=== PATIENT | male | born 1935 | race Caucasian/White ===

== ENCOUNTER 2018-02-15 11:33 | Inpatient (IN) | payer OTHER ==
[~2018-02-15] VITALS: Ht 177.8 cm; Wt 109.0 kg
[2018-02-15 11:55] VITALS: Ht 177.8 cm; Wt 109.0 kg
[2018-02-15 12:28] LABS: BASOPHIL % 0.2 % (0-2); PLATELET COUNT 244 x10^3mcL (130-400); RED CELL DISTRIBUTION WIDTH 13.2 % (11.5-14.5)
[2018-02-15 12:31] LABS: ALBUMIN 3.6 g/dL (3.4-5.0); ALKALINE PHOSPHATASE 57 U/L (46-116); ALT/SGPT 21 U/L (16-63); AST/SGOT 16 U/L (15-37); BILIRUBIN TOTAL 0.6 mg/dL (0.20-1.00); CALCIUM 9.3 mg/dL (8.5-10.1); CARBON DIOXIDE 32.6 mmol/L (21-32); CHLORIDE SERUM 99 mmol/L (98-107); CREATININE SERUM 1.5 mg/dL (0.7-1.3); GLUCOSE SERUM 162 mg/dL (74-106); POTASSIUM SERUM 3.6 mmol/L (3.5-5.1); SODIUM SERUM 137 mmol/L (136-145)
[2018-02-15] MEDS ORDERED: OCU OU (12:40)
[2018-02-15] MEDS ORDERED: PRED FORTE1 ML OS (12:40)
[2018-02-15] MEDS ORDERED: ASSORTED FRUIT G4 GM PO (12:41)
[2018-02-15] MEDS ORDERED: NASINH (12:41)
[2018-02-15] MEDS ORDERED: AMLODIPINE BESY10 M2 PO (12:42)
[2018-02-15] MEDS ORDERED: FINASTERIDE5 M1 PO (12:42)
[2018-02-15] MEDS ORDERED: FLO4 PO (12:42)
[2018-02-15] MEDS ORDERED: [UNRECOGNIZED DRUG - OTHER] PR (12:42)
[2018-02-15] MEDS ORDERED: GAS RELIEF80 MG PO (12:43)
[2018-02-15] MEDS ORDERED: GLUCOTROL5 MG PO (12:43)
[2018-02-15] MEDS ORDERED: LACTULOSE10 GM/152 PO (12:43)
[2018-02-15] MEDS ORDERED: ATENOLOL100 MG PO (12:44)
[2018-02-15] MEDS ORDERED: METFORMIN HCL850 MG PO (12:44)
[2018-02-15] MEDS ORDERED: ASPIRIN ADULT L81 M5 PO (12:44)
[2018-02-15] MEDS ORDERED: HYDROCHLOROTHIA25 MG PO (12:44)
[2018-02-15 14:01] VITALS: BP 159/55
[2018-02-15 15:04] LABS: CHOLESTEROL/HDL RATIO 3.9; MAGNESIUM 1.9 mg/dL (1.8-2.4)
[2018-02-15 15:30] VITALS: BP 159/55
[2018-02-15 16:55] VITALS: BP 164/58
[2018-02-15 18:38] LABS: UA SPECIFIC GRAVITY >=1.030 (1.005-1.035); microscopic required? YES; urine erythrocyte 1+ (NEGATIVE)
[2018-02-15 18:43] LABS: AMPHETAMINE QUAL UR NONE DETECTED (See below)
[2018-02-15 21:05] VITALS: BP 152/54
[2018-02-16 06:00] VITALS: BP 162/60
[2018-02-16 07:04] LABS: CALCIUM 8.4 mg/dL (8.5-10.1); CARBON DIOXIDE 32.1 mmol/L (21-32); CREATININE SERUM 1.1 mg/dL (0.7-1.3); GLUCOSE SERUM 213 mg/dL (74-106)
[2018-02-16 07:32] LABS: CHLORIDE SERUM 100 mmol/L (98-107); POTASSIUM SERUM 3.5 mmol/L (3.5-5.1); SODIUM SERUM 137 mmol/L (136-145)
[2018-02-16 10:28] LABS: BASOPHIL % 0.2 % (0-2); PLATELET COUNT 145 x10^3mcL (130-400); RED CELL DISTRIBUTION WIDTH 13.3 % (11.5-14.5)
[2018-02-16 12:15] VITALS: BP 187/68
[2018-02-16 17:06] VITALS: BP 118/70
[2018-02-16 21:15] VITALS: BP 170/66
[2018-02-17 05:31] VITALS: BP 152/59
[2018-02-17 06:39] LABS: CALCIUM 8.4 mg/dL (8.5-10.1); CARBON DIOXIDE 32.5 mmol/L (21-32); CHLORIDE SERUM 100 mmol/L (98-107); CREATININE SERUM 1.1 mg/dL (0.7-1.3); GLUCOSE SERUM 208 mg/dL (74-106); POTASSIUM SERUM 3.6 mmol/L (3.5-5.1); SODIUM SERUM 135 mmol/L (136-145)
[2018-02-17 09:17] VITALS: BP 132/54
[2018-02-17 11:47] VITALS: BP 171/60
[2018-02-17 17:36] VITALS: BP 167/61
[2018-02-17 21:42] VITALS: BP 168/59
[2018-02-18 06:44] VITALS: BP 164/95
[2018-02-18 06:45] VITALS: BP 172/65
[2018-02-18 10:12] VITALS: BP 155/60; BP 172/65
[2018-02-18 10:15] LABS: CALCIUM 8.9 mg/dL (8.5-10.1); CARBON DIOXIDE 29.6 mmol/L (21-32); CHLORIDE SERUM 97 mmol/L (98-107); CREATININE SERUM 1.1 mg/dL (0.7-1.3); GLUCOSE SERUM 251 mg/dL (74-106); POTASSIUM SERUM 3.3 mmol/L (3.5-5.1); SODIUM SERUM 133 mmol/L (136-145)
[2018-02-18 10:55] VITALS: BP 196/71
[2018-02-18 11:03] LABS: BASOPHIL % 0.2 % (0-2); PLATELET COUNT 190 x10^3mcL (130-400); RED CELL DISTRIBUTION WIDTH 12.8 % (11.5-14.5)
[2018-02-18 13:30] VITALS: BP 155/60
== END 2018-02-18 16:10 | disposition other institution (70) | DRG 682 ==
LOC: ED 11:33 → DU 13:08
PROVIDERS: Emergency Medicine; Internal Medicine; Internal Medicine Cardiovascular Disease
DX: N17.9 Acute kidney failure, unspecified (principal); J96.22 Acute and chronic respiratory failure with hypercapnia; J96.21 Acute and chronic respiratory failure with hypoxia; J44.1 Chronic obstructive pulmonary disease with (acute) exacerbation; R00.1 Bradycardia, unspecified; K52.9 Noninfective gastroenteritis and colitis, unspecified; I25.10 Atherosclerotic heart disease of native coronary artery without angina pectoris; D72.829 Elevated white blood cell count, unspecified; I10 Essential (primary) hypertension; Z68.31 Body mass index [BMI] 31.0-31.9, adult; K21.9 Gastro-esophageal reflux disease without esophagitis; N40.0 Benign prostatic hyperplasia without lower urinary tract symptoms; E78.5 Hyperlipidemia, unspecified; Z79.84 Long term (current) use of oral hypoglycemic drugs; Z79.899 Other long term (current) drug therapy; I44.7 Left bundle-branch block, unspecified; E66.01 Morbid (severe) obesity due to excess calories; E11.3593 Type 2 diabetes mellitus with proliferative diabetic retinopathy without macular edema, bilateral
CPT/HCPCS: 36600; 82962; 94150; J1644; J2920; J7030; J7040; J7620; J7626; Q0092